=== PATIENT | male | born 1975 | race American Indian/Alaskan Native ===

== ENCOUNTER 2021-07-15 00:05 | Inpatient (IN) | payer SELFPAY ==
[2021-07-15] MEDS ORDERED: SODIUM CHLORIDE 0.9% 1000 ML 1,000 ML IV ONE ×2 (00:38→02:40)
--- NOTE | 2021-07-15 00:44 | Emergency Department Report ---
HPI - General Chief Complaint: Arrhythmia/Palpitations Time Seen by Provider: 07/15/21 00:36 - HPI HPI: 45-year-old male with history of hypertension, Crohn's disease, and atrial fibrillation on Eliquis and sotalol presents complaining of palpitations which woke him up from sleep approximately 30 minutes ago. He states he woke up with the sensation of his heart racing and with a jittery/fluttery feeling. The patient says he is visiting from [place] where he follows in the clinic for his A. fib. In the past he has had to be cardioverted because of his A. fib. Other than the palpitations he denies experiencing any other symptoms. Specifically d enies any headache, vision change, chest pain, shortness of breath, cough, abdominal pain, nausea/vomiting, focal weakness, sensory changes, or any other complaints. Upon further discussion, the patient admits to feeling slightly dehydrated and not drinking enough fluids recently. Otherwise there are no known aggravating or alleviating factors. He has not tried taking anything for his symptoms. He is fully vaccinated against COVID-19. ED Past Medical Hx - Past Medical History Previous Medical History?: Yes Hx Hypertension: Yes Hx Diabetes: Yes (Pre-diabetic) Additional medical history: Atrial fib, Crohn's - Surgical History Past Surgical History?: Yes Hx Appendectomy: Yes Additional Surgical History: Bowel resection - Social History Smoking Status: Never Smoker ED Review of Systems ROS: Stated complaint: chest pain,A-fib Other details as noted in HPI Comment: All other systems reviewed and negative Constitutional: denies: chills, fever Eyes: denies: eye pain, vision change ENT: denies: throat pain, congestion Respiratory: denies: cough, shortness of breath Cardiovascular: palpitations. denies: chest pain, syncope Gastrointestinal: denies: abdominal pain, nausea, vomiting Genitourinary: denies: dysuria, frequency Musculoskeletal: denies: back pain, arthralgia Skin: denies: rash, lesions Neurological: denies: headache, weakness, numbness Physical Exam - Physical Exam Vital Signs: Vital Signs 07/15/21 00:27 Temperature 98.1 F Pulse Rate 140 H Respiratory 18 Rate Blood Pressure 113/91 [Right] O2 Sat by Pulse 96 Oximetry Physical Exam: GENERAL: Well developed and well nourished. No acute distress HEAD: Normocephalic. No obvious signs of trauma. ENT: Dry mucous membranes. EYES: Extraocular movements are intact. Pupils are equal round and reactive to light bilaterally NECK: Supple. Full ROM is intact. Trachea is midline. LUNGS: Nonlabored breathing. Equal chest rise bilaterally. Clear to auscultation bilaterally. CARDIOVASCULAR: Tachycardic with irregularly irregular rhythm. No murmurs or rubs. VASCULAR: Cap refill < 2 seconds ABDOMEN: Abdomen is soft and nondistended. There is no significant tenderness, guarding or rebound. SKIN: Skin is warm and dry NEURO: Patient is awake, alert, and oriented. graffiti cleaner II-XII grossly intact. No focal deficits. Normal motor and sensory exam throughout. Normal speech. MUSCULOSKELETAL: No obvious deformities. No significant tenderness. Normal ROM throughout. BACK/SPINE: No costovertebral angle tenderness. ED Course Vital Signs 07/15/21 00:27 Temperature 98.1 F Pulse Rate 140 H Respiratory 18 Rate Blood Pressure 113/91 [Right] O2 Sat by Pulse 96 Oximetry ED Medical Decision Making - Lab Data Result diagrams: 07/15/21 00:51 07/15/21 00:51 Lab Results 07/15/21 07/15/21 07/15/21 Range/Units 00:51 00:51 00:51 WBC 9.0 (4.5-11.0) K/mm3 RBC 4.98 (3.65-5.03) M/mm3 Hgb 15.7 H (11.8-15.2) gm/dl Hct 47.3 H (35.5-45.6) % MCV 95 H (84-94) fl MCH 32 (28-32) pg MCHC 33 (32-34) % RDW 14.2 (13.2-15.2) % Plt Count 343 (140-440) K/mm3 Lymph % (Auto) 23.6 (13.4-35.0) % [place] % (Auto) 9.6 H (0.0-7.3) % Eos % (Auto) 2.2 (0.0-4.3) % Baso % (Auto) 0.7 (0.0-1.8) % Lymph # (Auto) 2.1 (1.2-5.4) K/mm3 [place] # (Auto) 0.9 H (0.0-0.8) K/mm3 Eos # (Auto) 0.2 (0.0-0.4) K/mm3 Baso # (Auto) 0.1 (0.0-0.1) K/mm3 Seg Neutrophils % 63.9 (40.0-70.0) % Seg Neutrophils # 5.8 (1.8-7.7) K/mm3 PT 13.8 (12.2-14.9) Sec. INR 0.96 (0.87-1.13) APTT 25.3 (24.2-36.6) Sec. Sodium 139 (137-145) mmol/L Potassium 3.6 (3.6-5.0) mmol/L Chloride 99.0 (98-107) mmol/L Carbon Dioxide 27 (22-30) mmol/L Anion Gap 17 mmol/L BUN 12 (9-20) mg/dL Creatinine 1.0 (0.8-1.3) mg/dL Estimated GFR > 60 ml/min BUN/Creatinine Ratio 12 % Glucose 166 H (75-100) mg/dL Calcium 9.2 (8.4-10.2) mg/dL Magnesium 2.10 (1.7-2.3) mg/dL Total Bilirubin 0.40 (0.1-1.2) mg/dL Direct Bilirubin < 0.2 (0-0.2) mg/dL Indirect Bilirubin 0.2 mg/dL AST 17 (5-40) units/L ALT 11 (7-56) units/L Alkaline Phosphatase 68 (35-129) units/L Troponin T < 0.010 (0.00-0.029) ng/mL NT-Pro-B Natriuret Pep 12.56 (0-450) pg/mL Total Protein 8.5 H (6.3-8.2) g/dL Albumin 4.5 (3.9-5) g/dL Albumin/Globulin Ratio 1.1 % TSH (0.270-4.200) mlU/mL 07/15/21 07/15/21 Range/Units 00:51 03:33 WBC (4.5-11.0) K/mm3 RBC (3.65-5.03) M/mm3 Hgb (11.8-15.2) gm/dl Hct (35.5-45.6) % MCV (84-94) fl MCH (28-32) pg MCHC (32-34) % RDW (13.2-15.2) % Plt Count (140-440) K/mm3 Lymph % (Auto) (13.4-35.0) % [place] % (Auto) (0.0-7.3) % Eos % (Auto) (0.0-4.3) % Baso % (Auto) (0.0-1.8) % Lymph # (Auto) (1.2-5.4) K/mm3 [place] # (Auto) (0.0-0.8) K/mm3 Eos # (Auto) (0.0-0.4) K/mm3 Baso # (Auto) (0.0-0.1) K/mm3 Seg Neutrophils % (40.0-70.0) % Seg Neutrophils # (1.8-7.7) K/mm3 PT (12.2-14.9) Sec. INR (0.87-1.13) APTT (24.2-36.6) Sec. Sodium (137-145) mmol/L Potassium (3.6-5.0) mmol/L Chloride (98-107) mmol/L Carbon Dioxide (22-30) mmol/L Anion Gap mmol/L BUN (9-20) mg/dL Creatinine (0.8-1.3) mg/dL Estimated GFR ml/min BUN/Creatinine Ratio % Glucose (75-100) mg/dL Calcium (8.4-10.2) mg/dL Magnesium (1.7-2.3) mg/dL Total Bilirubin (0.1-1.2) mg/dL Direct Bilirubin (0-0.2) mg/dL Indirect Bilirubin mg/dL AST (5-40) units/L ALT (7-56) units/L Alkaline Phosphatase (35-129) units/L Troponin T < 0.010 (0.00-0.029) ng/mL NT-Pro-B Natriuret Pep (0-450) pg/mL Total Protein (6.3-8.2) g/dL Albumin (3.9-5) g/dL Albumin/Globulin Ratio % TSH 3.030 (0.270-4.200) mlU/mL - EKG Data -: EKG Interpreted by Me - EKG Data 07/15/21 00:42 Atrial fibrillation with rapid ventricular response with rate of 145. Normal axis. Grossly normal intervals. Occasional PVCs. No obvious ST segment or T wave abnormalities. - Radiology Data Radiology results: report reviewed - Medical Decision Making 45-year-old male with history of A. fib on sotalol and Eliquis as well as Crohn's disease and hypertension presents complaining of palpitations which woke him up from sleep 30 minutes ago. He denies any associated chest pain, shortness of breath, or any other associate symptoms of deformity palpitations. On initial assessment he was noted to be with rapid heart rate of 140. EKG shows A. fib with RVR with rate of 145. However, when speaking to the patient his heart rate varies from the 100s to the 130s on the monitor. He is afebrile with otherwise stable vitals. He has dry mucous membranes admits to poor fluid intake recently. We will perform broad work-up with a full set of labs, EKG, chest x-ray. We will give 1 L of IV fluids and reassess. Chest x-ray shows no acute abnormalities Labs reveal no significant leukocytosis or anemia. However, hemoglobin is elevated at 15.7 which I suspect is the result of hemoconcentration from volume depletion. Creatinine is within normal limits at 1.0 with BUN of 12. Potassium is 3.6. Given the patient is presenting with A. fib I have ordered potassium repletion. Troponin is negative. BNP is normal. TSH is normal. At 2:50 AM, the patient was finally brought back to a room in the main ER where he can receive IV fluids. Nonetheless, his heart rate is in the 140s. The patient normally takes sotalol 120 mg twice daily. Given this history we will call cardiology for recommendations for rate control if IV fluids fail to bring the patient's heart rate down. At 3:20 AM I spoke with Dr. Reza of cardiology regarding the patient's case. He recommends initiation of a Cardizem drip for rate control and admission to the hospital with further recommendations to be given in the inpatient side in the morning. Cardizem drip has been initiated. The patient was explained the need for admission for rate control and transition to an oral medication. He expressed understanding and agreement with the plan of care. At 3:30 AM I spoke with Dr. Yanez, the on-call hospitalist regarding the case and he accepts the patient for admission and will assume care. On repeat assessment at 5:30 AM, the patient's heart rate is better controlled, in the 100s to 120s. He still needs to receive the rest of his IV fluids. Critical Care Time: Yes Critical care time in (mins) excluding proc time.: 40 Critical care attestation.: If time is entered above; I have spent that time in minutes in the direct care of this critically ill patient, excluding procedure time. Critical care time was spent in the evaluation/assessment, work-up, and management of atrial fibrillation with RVR requiring initiation of a Cardizem drip as well as consultation with cardiology and frequent reevaluation and reassessment. ED Disposition Clinical Impression: Atrial fibrillation with RVR, Dehydration Disposition: 09 ADMITTED INPATIENT Is pt being admited?: Yes Condition: Serious
--- NOTE | 2021-07-15 01:14 | XRay Report ---
CHEST 2 VIEWS INDICATION / CLINICAL INFORMATION: Palpitations.. COMPARISON: None available. FINDINGS: SUPPORT DEVICES: None. HEART / MEDIASTINUM: No significant abnormality. LUNGS / PLEURA: No significant pulmonary or pleural abnormality. Mild elevation of the left hemidiaph ragm. No pneumothorax. ADDITIONAL FINDINGS: No significant additional findings. IMPRESSION: 1. No acute findings. Signer Name: Emma Grant MD Signed: 07/15/2021 1:10 AM Workstation Name: [id number]
[2021-07-15 01:39] LABS: Basophils # (Auto) 0.1 K/mm3 (0.0-0.1); Basophils % (Auto) 0.7 % (0.0-1.8); Eosinophils # (Auto) 0.2 K/mm3 (0.0-0.4); Eosinophils % (Auto) 2.2 % (0.0-4.3); Hematocrit 47.3 % (35.5-45.6); Hemoglobin 15.7 gm/dl (11.8-15.2); Lymphocytes # (Auto) 2.1 K/mm3 (1.2-5.4); Lymphocytes % (Auto) 23.6 % (13.4-35.0); Mean Corpuscular HGB Conc 33 % (32-34); Mean Corpuscular Volume 95 fl (84-94); Monocytes # (Auto) 0.9 K/mm3 (0.0-0.8); Monocytes % (Auto) 9.6 % (0.0-7.3); Platelet Count 343 K/mm3 (140-440); Red Blood Count 4.98 M/mm3 (3.65-5.03); Red Cell Distribution Width 14.2 % (13.2-15.2)
[2021-07-15 01:42] LABS: Alanine Aminotransferase 11 units/L (7-56); Albumin 4.5 g/dL (3.9-5); BUN/Creatinine Ratio 12; Blood Urea Nitrogen 12 mg/dL (9-20); Calcium 9.2 mg/dL (8.4-10.2); Hemolysis Index 17
[2021-07-15 01:45] LABS: Bilirubin,Direct < 0.2 mg/dL (0-0.2)
[2021-07-15 01:55] LABS: INR 0.96 (0.87-1.13)
[2021-07-15 01:56] LABS: Partial Thromboplastin Time 25.3 Sec. (24.2-36.6)
[2021-07-15] MEDS ORDERED: POTASSIUM CHLORIDE ER 20 MEQ TAB PO ONE (02:28)
[2021-07-15] MEDS ORDERED: traMADol 50 MG TAB PO PRN (04:50)
[2021-07-15] MEDS ORDERED: MORPHINE 4 MG/1 ML INJ IV PRN (04:50)
[2021-07-15] MEDS ORDERED: ACETAMINOPHEN 325 MG TAB PO PRN (04:50)
--- NOTE | 2021-07-15 04:58 | History and Physical Report ---
History of Present Illness Date of examination: 07/15/21 Date of admission: 07/15/21 Chief complaint: Palpitation History of present illness: 45-year-old male with history of hypertension, Crohn's disease, and atrial fibrillation on Eliquis and sotalol was brought to the emergency room because of palpitations which woke him up from sleep approximately 30 minutes ago. He states he woke up with the sensation of his heart racing and with a jittery/fluttery feeling. The patient says he is visiting from [place] where he follows in the clinic for his A. fib. In the past he has had to be cardioverted because of his A. fib. Other than the palpitations he denies experiencing any other symptoms. Specifically denies any headache, vision change, chest pain, shortness of breath, cough, abdominal pain, nausea/vomiting, focal weakness, sensory changes, or any other complaints. Upon further discussion, the patient admits to feeling slightly dehydrated and not drinking enough fluids recently. Otherwise there are no known aggravating or alleviating factors. He has not tried taking anything for his symptoms. He is fully vaccinated against COVID- 19. spoke with Dr[address] Reza of cardiology regarding the patient's case. He recommends initiation of a Cardizem drip for rate control and admission to the hospital with further recommendations to be given in the inpatient . Past History Past Medical History: atrial fib, diabetes, hypertension, other (Crohn's) Past Surgical History: Other (Bowel resection) Medications and Allergies Allergies Allergy/AdvReac Type Severity Reaction Status Date / Time prednisone AdvReac Unknown Verified 07/15/21 00:27 Active Meds: Active Medications Diltiazem HCl (Cardizem/D5w 100mg/100ml) 100 mg in 100 mls @ 5 mls/hr IV TITR ELTON; Protocol Review of Systems All systems: negative Cardiovascular: palpitations, rapid/irregular heart beat, lightheadedness Exam - Constitutional Vitals: Temp Pulse Resp BP Pulse Ox 98.1 F 142 H 18 160/90 99 07/15/21 00:27 07/15/21 02:52 07/15/21 02:52 07/15/21 02:52 07/15/21 02:52 General appearance: Present: no acute distress, well-nourished - EENT Eyes: Present: PERRL ENT: hearing intact, clear oral mucosa - Neck Neck: Present: supple, normal ROM - Respiratory Respiratory effort: normal Respiratory: bilateral: diminished - Cardiovascular Rhythm: irregularly irregular Heart Sounds: Present: S1 & S2. Absent: rub, click - Extremities Extremities: pulses symmetrical, No edema Peripheral Pulses: within normal limits - Abdominal General gastrointestinal: Present: soft, non-tender, non-distended, normal bowel sounds Male genitourinary: Present: normal - Integumentary Integumentary: Present: clear, warm, dry - Musculoskeletal Musculoskeletal: gait normal, strength equal bilaterally - Psychiatric Psychiatric: appropriate mood/affect, intact judgment & insight - Neurologic Neurologic: CNII-XII intact, moves all extremities HEART Score - HEART Score Troponin: Troponin T < 0.010 ng/mL (0.00-0.029) 07/15/21 03:33 Results - Labs CBC & Chem 7: 07/15/21 00:51 07/15/21 00:51 Labs: Laboratory Last Values WBC 9.0 K/mm3 (4.5-11.0) 07/15/21 00:51 RBC 4.98 M/mm3 (3.65-5.03) 07/15/21 00:51 Hgb 15.7 gm/dl (11.8-15.2) H 07/15/21 00:51 Hct 47.3 % (35.5-45.6) H 07/15/21 00:51 MCV 95 fl (84-94) H 07/15/21 00:51 MCH 32 pg (28-32) 07/15/21 00:51 MCHC 33 % (32-34) 07/15/21 00:51 RDW 14.2 % (13.2-15.2) 07/15/21 00:51 Plt Count 343 K/mm3 (140-440) 07/15/21 00:51 Lymph % (Auto) 23.6 % (13.4-35.0) 07/15/21 00:51 [place] % (Auto) 9.6 % (0.0-7.3) H 07/15/21 00:51 Eos % (Auto) 2.2 % (0.0-4.3) 07/15/21 00:51 Baso % (Auto) 0.7 % (0.0-1.8) 07/15/21 00:51 Lymph # (Auto) 2.1 K/mm3 (1.2-5.4) 07/15/21 00:51 [place] # (Auto) 0.9 K/mm3 (0.0-0.8) H 07/15/21 00:51 Eos # (Auto) 0.2 K/mm3 (0.0-0.4) 07/15/21 00:51 Baso # (Auto) 0.1 K/mm3 (0.0-0.1) 07/15/21 00:51 Seg Neutrophils % 63.9 % (40.0-70.0) 07/15/21 00:51 Seg Neutrophils # 5.8 K/mm3 (1.8-7.7) 07/15/21 00:51 PT 13.8 Sec. (12.2-14.9) 07/15/21 00:51 INR 0.96 (0.87-1.13) 07/15/21 00:51 APTT 25.3 Sec. (24.2-36.6) 07/15/21 00:51 Sodium 139 mmol/L (137-145) 07/15/21 00:51 Potassium 3.6 mmol/L (3.6-5.0) 07/15/21 00:51 Chloride 99.0 mmol/L (98-107) 07/15/21 00:51 Carbon Dioxide 27 mmol/L (22-30) 07/15/21 00:51 Anion Gap 17 mmol/L 07/15/21 00:51 BUN 12 mg/dL (9-20) 07/15/21 00:51 Creatinine 1.0 mg/dL (0.8-1.3) 07/15/21 00:51 Estimated GFR > 60 ml/min 07/15/21 00:51 BUN/Creatinine Ratio 12 % 07/15/21 00:51 Glucose 166 mg/dL (75-100) H 07/15/21 00:51 Calcium 9.2 mg/dL (8.4-10.2) 07/15/21 00:51 Magnesium 2.10 mg/dL (1.7-2.3) 07/15/21 00:51 Total Bilirubin 0.40 mg/dL (0.1-1.2) 07/15/21 00:51 Direct Bilirubin < 0.2 mg/dL (0-0.2) 07/15/21 00:51 Indirect Bilirubin 0.2 mg/dL 07/15/21 00:51 AST 17 units/L (5-40) 07/15/21 00:51 ALT 11 units/L (7-56) 07/15/21 00:51 Alkaline Phosphatase 68 units/L (35-129) 07/15/21 00:51 Troponin T < 0.010 ng/mL (0.00-0.029) 07/15/21 03:33 NT-Pro-B Natriuret Pep 12.56 pg/mL (0-450) 07/15/21 00:51 Total Protein 8.5 g/dL (6.3-8.2) H 07/15/21 00:51 Albumin 4.5 g/dL (3.9-5) 07/15/21 00:51 Albumin/Globulin Ratio 1.1 % 07/15/21 00:51 TSH 3.030 mlU/mL (0.270-4.200) 07/15/21 00:51 - Imaging and Cardiology Chest x-ray: report reviewed Assessment and Plan VTE prophylaxis?: Chemical Plan of care discussed with patient/family: Yes - Patient Problems (1) Atrial fibrillation with RVR Current Visit: Yes Status: Acute Plan to address problem: Admit the patient to the critical care unit. Aspirin 81 mg p.o. daily. Lipitor 40 mg p.o. daily. Patient is on Cardizem drip. We will do the serial cardiac enzymes. Echocardiogram. Cardiac allergy evaluation. Eliquis 5 mg p.o. twice daily (2) Hypertension Current Visit: Yes Status: Acute Plan to address problem: Patient is on Cardizem drip. We will continue the home medication. We will monitor the patient closely (3) Hyperglycemia Current Visit: Yes Status: Acute Plan to address problem: Will monitor the glucose closely. Will consult diabetic education. (4) Dehydration Current Visit: Yes Status: Acute Plan to address problem: Normal saline at the rate of 100 cc/h. We dehydrate the patient slowly. Recheck BMP in the morning (5) DVT prophylaxis Current Visit: Yes Status: Acute Plan to address problem: Eliquis 5 mg p.o. twice daily for DVT prophylaxis. Pepcid 20 mg p.o. twice daily for GI prophylaxis. Patient is a full code
[2021-07-15] MEDS ORDERED: SODIUM CHLORIDE 0.9% 1000 ML 1,000 ML IV SCH (05:00)
[2021-07-15] MEDS: dilTIAZem/D5W 100 MG/100 ML BAG IV SCH ×2 (06:00→17:05)
--- NOTE | 2021-07-15 08:05 | Progress Note ---
Assessment and Plan Assessment and plan: History of present illness: 45-year-old male with history of hypertension, Crohn's disease, and atrial fibrillation on Eliquis and sotalol was brought to the emergency room because of palpitations which woke him up from sleep approximately 30 minutes ago. He states he woke up with the sensation of his heart racing and with a jittery/fluttery feeling. The patient says he is visiting from [place] where he follows in the clinic for his A. fib. In the past he has had to be cardioverted because of his A. fib. Other than the palpitations he denies experiencing any other symptoms. Specifically denies any headache, vision change, chest pain, shortness of breath, cough, abdominal pain, nausea/vomiting, focal weakness, sensory changes, or any other complaints. Upon further discussion, the patient admits to feeling slightly dehydrated and not drinking enough fluids recently. Otherwise there are no known aggravating or alleviating factors. He has not tried taking anything for his symptoms. He is fully vaccinated against COVID- 19. Admitting physician spoke with Dr. Reza of cardiology regarding the patient's case. He recommends initiation of a Cardizem drip for rate control and admission to the hospital with further recommendations to be given in the inpatient . Hospital Course: 07/15/2021: On diltiazem gtt. Restarted home sotalol, eliquis, hctz, amlodipine. Cardiology recs noted. Awaiting echo read. Assessment: #Atrial fibrillation with rapid ventricular response - palpitations noted while sleeping, follows with [facility] [employer] in [place]. Has a prior history of cardioversion x 1. Continuous telemetry Aspirin 81, Lipitor 40 Cardizem drip Trend troponins Echocardiogram Resume home Eliquis and sotalol Cardiology consultation, may consider cardioversion if unable to control. #Hypertension - elevated overnight - prn labetalol IV - currently on cardizem gtt - restarted amlodipine and hctz. #Hyperglycemia - noted #Dehydration - IVF - encourage PO intake. #Advance care planning Disease education conducted, care plan discussed, diagnoses discussed, prognosis discussed, patient is full code, patient acknowledges understanding and agree with care plan, +30 minutes. The high probability of a clinically significant, sudden or life threatening deterioration of the [cardiac] system(s) required my full and direct attention, intervention and personal management. The aggregate critical care time was [60] minutes. This time is in addition to time spent performing reported procedures but includes the following: [x] Data Review and interpretation [x] Patient assessment and monitoring of vital signs [x] Documentation [x] Medication orders and management History Interval history: Patient doing well on encounter. States he is compliant with cardiac meds. He was sleeping when palpitations occured which prompted him to seek urgent medical care. Ventricular rate was upper 90's/low 100's. Rhythm remains in afib. BP stable. Hospitalist Physical - Physical exam Narrative exam: Physical Exam: VITAL SIGNS: Reviewed. GENERAL: The patient appears normally developed, Vital signs as documented. HEAD: No signs of head trauma. EYES: Pupils are equal. Extraocular motions intact. EARS: Hearing grossly intact. MOUTH: Oropharynx is normal. NECK: No adenopathy, no JVD. CHEST: Chest with clear breath sounds bilaterally. No wheezes, rales, or rhonchi. CARDIAC: tachycardic/ irregular rhythm. S1 and S2, without murmurs, gallops, or rubs. VASCULAR: No Edema. Peripheral pulses normal and equal in all extremities. ABDOMEN: Soft, non tender and non distended. No rebound or guarding, and no masses palpated. Bowel Sounds normal. MUSCULOSKELETAL: Good range of motion of all major joints. Extremities without clubbing, cyanosis or edema. NEUROLOGIC EXAM: Alert and oriented x 4. no focal sensory or strength deficits. PSYCHIATRIC: Mood normal. SKIN: detail exam as documented in skin assessment - Constitutional Vitals: Temp Pulse Resp BP Pulse Ox 98.1 F 142 H 18 160/90 99 07/15/21 00:27 07/15/21 02:52 07/15/21 02:52 07/15/21 02:52 07/15/21 02:52 General appearance: Present: no acute distress, well-nourished HEART Score - HEART Score Troponin: Troponin T < 0.010 ng/mL (0.00-0.029) 07/15/21 03:33 Results - Labs CBC & Chem 7: 07/15/21 00:51 07/15/21 00:51 Labs: Laboratory Last Values WBC 9.0 K/mm3 (4.5-11.0) 07/15/21 00:51 RBC 4.98 M/mm3 (3.65-5.03) 07/15/21 00:51 Hgb 15.7 gm/dl (11.8-15.2) H 07/15/21 00:51 Hct 47.3 % (35.5-45.6) H 07/15/21 00:51 MCV 95 fl (84-94) H 07/15/21 00:51 MCH 32 pg (28-32) 07/15/21 00:51 MCHC 33 % (32-34) 07/15/21 00:51 RDW 14.2 % (13.2-15.2) 07/15/21 00:51 Plt Count 343 K/mm3 (140-440) 07/15/21 00:51 Lymph % (Auto) 23.6 % (13.4-35.0) 07/15/21 00:51 [place] % (Auto) 9.6 % (0.0-7.3) H 07/15/21 00:51 Eos % (Auto) 2.2 % (0.0-4.3) 07/15/21 00:51 Baso % (Auto) 0.7 % (0.0-1.8) 07/15/21 00:51 Lymph # (Auto) 2.1 K/mm3 (1.2-5.4) 07/15/21 00:51 [place] # (Auto) 0.9 K/mm3 (0.0-0.8) H 07/15/21 00:51 Eos # (Auto) 0.2 K/mm3 (0.0-0.4) 07/15/21 00:51 Baso # (Auto) 0.1 K/mm3 (0.0-0.1) 07/15/21 00:51 Seg Neutrophils % 63.9 % (40.0-70.0) 07/15/21 00:51 Seg Neutrophils # 5.8 K/mm3 (1.8-7.7) 07/15/21 00:51 PT 13.8 Sec. (12.2-14.9) 07/15/21 00:51 INR 0.96 (0.87-1.13) 07/15/21 00:51 APTT 25.3 Sec. (24.2-36.6) 07/15/21 00:51 Sodium 139 mmol/L (137-145) 07/15/21 00:51 Potassium 3.6 mmol/L (3.6-5.0) 07/15/21 00:51 Chloride 99.0 mmol/L (98-107) 07/15/21 00:51 Carbon Dioxide 27 mmol/L (22-30) 07/15/21 00:51 Anion Gap 17 mmol/L 07/15/21 00:51 BUN 12 mg/dL (9-20) 07/15/21 00:51 Creatinine 1.0 mg/dL (0.8-1.3) 07/15/21 00:51 Estimated GFR > 60 ml/min 07/15/21 00:51 BUN/Creatinine Ratio 12 % 07/15/21 00:51 Glucose 166 mg/dL (75-100) H 07/15/21 00:51 Calcium 9.2 mg/dL (8.4-10.2) 07/15/21 00:51 Magnesium 2.10 mg/dL (1.7-2.3) 07/15/21 00:51 Total Bilirubin 0.40 mg/dL (0.1-1.2) 07/15/21 00:51 Direct Bilirubin < 0.2 mg/dL (0-0.2) 07/15/21 00:51 Indirect Bilirubin 0.2 mg/dL 07/15/21 00:51 AST 17 units/L (5-40) 07/15/21 00:51 ALT 11 units/L (7-56) 07/15/21 00:51 Alkaline Phosphatase 68 units/L (35-129) 07/15/21 00:51 Troponin T < 0.010 ng/mL (0.00-0.029) 07/15/21 03:33 NT-Pro-B Natriuret Pep 12.56 pg/mL (0-450) 07/15/21 00:51 Total Protein 8.5 g/dL (6.3-8.2) H 07/15/21 00:51 Albumin 4.5 g/dL (3.9-5) 07/15/21 00:51 Albumin/Globulin Ratio 1.1 % 07/15/21 00:51 TSH 3.030 mlU/mL (0.270-4.200) 07/15/21 00:51 Active Medications - Current Medications Current Medications: Generic Name Dose Route Start Last Admin Trade Name Freq PRN Reason Stop Dose Admin Acetaminophen 650 mg 07/15/21 04:50 Acetaminophen 325 Mg Tab PO Q6H PRN Pain, Mild (1-3) Apixaban 5 mg 07/15/21 10:00 Apixaban 5 Mg Tab PO Q12HR [facility] Protocol Aspirin 81 mg 07/16/21 10:00 Aspirin 81 Mg Tab Chew PO QDAY [facility] Atorvastatin Calcium 40 mg 07/15/21 22:00 Atorvastatin 40 Mg Tab PO QHS [place] Diltiazem HCl 100 mg in 100 mls @ 5 mls/hr 07/15/21 04:00 07/15/21 06:00 Cardizem/D5w 100mg/100ml IV 5 mg/hr TITR [place] 5 mls/hr Administration Protocol 5 MG/HR Sodium Chloride 1,000 mls @ 100 mls/hr 07/15/21 05:00 Nacl 0.9% 1000 Ml IV DIRECT [place] Morphine Sulfate 2 mg 07/15/21 04:50 Morphine 4 Mg/1 Ml Inj IV Q5MIN PRN Chest Pain unrelieved by NTG Pantoprazole Sodium 40 mg 07/15/21 10:00 Pantoprazole 40 Mg Tab PO QDAY [facility] Sodium Chloride 10 ml 07/15/21 04:50 Sodium Chloride 0.9% 10 Ml Flush Syringe IV PRN PRN LINE FLUSH Tramadol HCl 50 mg 07/15/21 04:50 Tramadol 50 Mg Tab PO Q6H PRN Pain, Moderate (4-6)
[2021-07-15] MEDS: PANTOPRAZOLE 40 MG TAB PO SCH (11:25)
[2021-07-15] MEDS: APIXABAN 5 MG TAB PO SCH ×2 (11:25→21:43)
--- NOTE | 2021-07-15 11:33 | Consultation ---
History of Present Illness Consult date: 07/15/21 Requesting physician: SHAMA GONGORA Consult reason: tachycardia History of present illness: Have been consulted and evaluated the patient who presented with palpitation and was noted to be in A. fib with RVR. Patient is a 45-year-old male with history of hypertension, Crohn's disease, and paroxysmal atrial fibrillation on Eliquis and sotalol. Patient apparently lives in [place] and visiting relatives here in [place]. He reports he has longstanding history of paroxysmal atrial fibrillation with 5-6 recurrences. Previously been cardioverted also. 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 Maintained on sotalol and Eliquis by his PCP. He reports he has been compliant with his Eliquis therapy. Patient reports he had palpitations which woke him up from sleep approximately 30 minutes prior to arrival to the hospital. He states he woke up with the sensation of his heart racing and with a jittery/fluttery feeling. Patient denies any headache, vision change, chest pain, shortness of breath, cough, abdominal pain, nausea/vomiting, focal weakness, sensory changes, or any other complaints. . Past History Past Medical History: atrial fib, diabetes, hypertension, other (Crohn's) Past Surgical History: Other (Bowel resection) Medications and Allergies Allergies Allergy/AdvReac Type Severity Reaction Status Date / Time prednisone AdvReac Unknown Verified 07/15/21 00:27 Active Meds: Active Medications Acetaminophen (Acetaminophen 325 Mg Tab) 650 mg PO Q6H PRN PRN Reason: Pain, Mild (1-3) Apixaban (Apixaban 5 Mg Tab) 5 mg PO Q12HR ELTON; Protocol Last Admin: 07/15/21 11:25 Dose: 5 mg Aspirin (Aspirin 81 Mg Tab Chew) 81 mg PO QDAY ELTON Atorvastatin Calcium (Atorvastatin 40 Mg Tab) 40 mg PO QHS ELTON Diltiazem HCl (Cardizem/D5w 100mg/100ml) 100 mg in 100 mls @ 5 mls/hr IV TITR ELTON; Protocol Last Titration: 07/15/21 08:02 Dose: 10 mg/hr, 10 mls/hr Sodium Chloride (Nacl 0.9% 1000 Ml) 1,000 mls @ 100 mls/hr IV DIRECT ELTON Morphine Sulfate (Morphine 4 Mg/1 Ml Inj) 2 mg IV Q5MIN PRN PRN Reason: Chest Pain unrelieved by NTG Pantoprazole Sodium (Pantoprazole 40 Mg Tab) 40 mg PO QDAY ELTON Last Admin: 07/15/21 11:25 Dose: 40 mg Sodium Chloride (Sodium Chloride 0.9% 10 Ml Flush Syringe) 10 ml IV PRN PRN PRN Reason: LINE FLUSH Sotalol HCl (Sotalol 80 Mg Tab) 120 mg PO Q12HR ELTON Tramadol HCl (Tramadol 50 Mg Tab) 50 mg PO Q6H PRN PRN Reason: Pain, Moderate (4-6) Review of Systems All systems: negative (As mentioned in the H&P) Physical Examination Vital Signs Temp Pulse Resp BP Pulse Ox 98.1 F 140 H 18 113/91 96 07/15/21 00:27 07/15/21 00:27 07/15/21 00:27 07/15/21 00:27 07/15/21 00:27 General appearance: no acute distress HEENT: Positive: Normocephaly Neck: Positive: trachea midline Cardiac: Positive: Irregularly Regular Lungs: Positive: clear to auscultation Neuro: Positive: Grossly Intact Abdomen: Positive: Unremarkable Extremities: Present: normal Results 07/15/21 00:51 07/15/21 00:51 Cardiac Enzymes 07/15/21 Range/Units 00:51 AST 17 (5-40) units/L Coagulation 07/15/21 Range/Units 00:51 PT 13.8 (12.2-14.9) Sec. INR 0.96 (0.87-1.13) APTT 25.3 (24.2-36.6) Sec. CBC 07/15/21 Range/Units 00:51 WBC 9.0 (4.5-11.0) K/mm3 RBC 4.98 (3.65-5.03) M/mm3 Hgb 15.7 H (11.8-15.2) gm/dl Hct 47.3 H (35.5-45.6) % Plt Count 343 (140-440) K/mm3 Lymph # (Auto) 2.1 (1.2-5.4) K/mm3 [place] # (Auto) 0.9 H (0.0-0.8) K/mm3 Eos # (Auto) 0.2 (0.0-0.4) K/mm3 Baso # (Auto) 0.1 (0.0-0.1) K/mm3 Comprehensive Metabolic Panel 07/15/21 Range/Units 00:51 Sodium 139 (137-145) mmol/L Potassium 3.6 (3.6-5.0) mmol/L Chloride 99.0 (98-107) mmol/L Carbon Dioxide 27 (22-30) mmol/L BUN 12 (9-20) mg/dL Creatinine 1.0 (0.8-1.3) mg/dL Glucose 166 H (75-100) mg/dL Calcium 9.2 (8.4-10.2) mg/dL Direct Bilirubin < 0.2 (0-0.2) mg/dL Indirect Bilirubin 0.2 mg/dL AST 17 (5-40) units/L ALT 11 (7-56) units/L Alkaline Phosphatase 68 (35-129) units/L Total Protein 8.5 H (6.3-8.2) g/dL Albumin 4.5 (3.9-5) g/dL EKG interpretations - Telemetry EKG Rhythm: Atrial Fibrillation Assessment and Plan Impression 1. Atrial fibrillation with RVR 2. History of paroxysmal atrial fibrillation on sotalol and anticoagulated with Eliquis 3. History of Crohn's disease status post surgery. Plan 1. Discontinue aspirin 2. Wean Cardizem drip 3. Continue sotalol 4. Continue Eliquis 5. CHADS2 Vascor of 1 (low low risk of thromboembolism) Patient had missed just 1 dose last night of Eliquis. Currently back on Eliquis. If patient has A. fib with RVR episodes will consider cardioversion.
[2021-07-15] MEDS: hydroCHLOROthiazide 12.5 MG CAP PO SCH (13:04)
--- NOTE | 2021-07-15 13:06 | Consultation ---
History of Present Illness - Reason for Consult Consult date: 07/15/21 Afib with RVR - History of Present Illness 45 y/o male with known Afib admitted last night with afib with rvr. Per patient on sotalol and has had to be cardioverted in the past. Patient from [place] here visiting family. Past History Past Medical History: atrial fib, diabetes, hypertension, other (Crohn's) Past Surgical History: Other (Bowel resection) Medications and Allergies Allergies Allergy/AdvReac Type Severity Reaction Status Date / Time prednisone AdvReac Unknown Verified 07/15/21 00:27 Active Meds: Active Medications Acetaminophen (Acetaminophen 325 Mg Tab) 650 mg PO Q6H PRN PRN Reason: Pain, Mild (1-3) Apixaban (Apixaban 5 Mg Tab) 5 mg PO Q12HR ELTON; Protocol Last Admin: 07/15/21 11:25 Dose: 5 mg Aspirin (Aspirin 81 Mg Tab Chew) 81 mg PO QDAY ELTON Atorvastatin Calcium (Atorvastatin 40 Mg Tab) 40 mg PO QHS ELTON Hydrochlorothiazide (Hydrochlorothiazide 12.5 Mg Cap) 12.5 mg PO QDAY ELTON Diltiazem HCl (Cardizem/D5w 100mg/100ml) 100 mg in 100 mls @ 5 mls/hr IV TITR ELTON; Protocol Last Titration: 07/15/21 08:02 Dose: 10 mg/hr, 10 mls/hr Sodium Chloride (Nacl 0.9% 1000 Ml) 1,000 mls @ 100 mls/hr IV DIRECT ELTON Morphine Sulfate (Morphine 4 Mg/1 Ml Inj) 2 mg IV Q5MIN PRN PRN Reason: Chest Pain unrelieved by NTG Pantoprazole Sodium (Pantoprazole 40 Mg Tab) 40 mg PO QDAY ELTON Last Admin: 07/15/21 11:25 Dose: 40 mg Sodium Chloride (Sodium Chloride 0.9% 10 Ml Flush Syringe) 10 ml IV PRN PRN PRN Reason: LINE FLUSH Sotalol HCl (Sotalol 80 Mg Tab) 120 mg PO Q12HR ELTON Tramadol HCl (Tramadol 50 Mg Tab) 50 mg PO Q6H PRN PRN Reason: Pain, Moderate (4-6) Exam - Constitutional Vitals: Temp Pulse Resp BP Pulse Ox 98.1 F 93 H 16 111/82 98 07/15/21 00:27 07/15/21 11:30 07/15/21 12:39 07/15/21 11:30 07/15/21 12:39 Results - Labs CBC & Chem 7: 07/15/21 00:51 07/15/21 00:51 Labs: Abnormal lab results 07/15/21 07/15/21 Range/Units 00:51 00:51 Hgb 15.7 H (11.8-15.2) gm/dl Hct 47.3 H (35.5-45.6) % MCV 95 H (84-94) fl [place] % (Auto) 9.6 H (0.0-7.3) % [place] # (Auto) 0.9 H (0.0-0.8) K/mm3 Glucose 166 H (75-100) mg/dL Total Protein 8.5 H (6.3-8.2) g/dL - Imaging and Cardiology Chest x-ray: image reviewed Assessment and Plan 45 y/o male with history of afib, on sotalol admitted with afib, rate not controlled. 1. Afib-rate control per cards. On anticoagulation with Eliquis. Per cards if not controlled then will consider cardioversion 2. HTN- per cards 3. Crohn's-not in flare
--- NOTE | 2021-07-16 08:44 | Progress Note ---
Assessment and Plan Assessment and plan: Assessment/plan --Atrial fibrillation with rapid ventricular response s/p Cardizem drip Patient remains in A. fib with rapid ventricular rate Cardiology recommended to continue Cardizem drip and also continue sotalol and Eliquis Echocardiogram; EF 60 to 65% Cardiology considering cardioversion tomorrow , n.p.o. from midnight --History of paroxysmal atrial fibrillation on Cardizem drip, sotalol and Eliquis Continue current management, possible cardioversion tomorrow if no improvement -- History of Crohn's disease; Stable, closely monitor --Dehydration[ Plenty oral fluids, IV fluids --Advance care planning Disease education conducted, care plan discussed, diagnoses discussed, prognosis discussed, patient acknowledges understanding and agree with care plan, +30 minutes. --Patient is full code, Closely monitor the patient and adjust management as needed --DVT prophylaxis cardiology recommendations noted and appreciated Brief history and daily Hospital Course: 45-year-old male with history of hypertension, Crohn's disease, and atrial fibrillation on Eliquis and sotalol was brought to the emergency room because of palpitations which woke him up from sleep approximately 30 minutes ago. He states he woke up with the sensation of his heart racing and with a jittery/fluttery feeling. The patient says he is visiting from [place] where he follows in the clinic for his A. fib. In the past he has had to be cardioverted because of his A. fib. Other than the palpitations he denies experiencing any other symptoms.The patient admits to feeling slightly dehydrated and not drinking enough fluids recently. Otherwise there are no kn own aggravating or alleviating factors. He has not tried taking anything for his symptoms. He is fully vaccinated against COVID-19. 07/15/2021: On diltiazem gtt. Restarted home sotalol, eliquis, hctz, amlodipine. Cardiology recs noted. Awaiting echo 60 to 65% 07/16/2021; patient remains in A. fib with rapid ventricular rate, cardiology recommend continue Cardizem drip, sotalol and Eliquis Possible cardioversion tomorrow per cardiology/ EP. N.p.o. from midnight History Interval history: I have seen and examined the patient at the bedside in ER awaiting bed assignment Patient continues to have A. fib with rapid ventricular rate in spite of receiv ing Cardizem drip and sotalol Patient denies any chest pain or shortness of breath Vital signs reviewed Hospitalist Physical - Constitutional Vitals: Temp Pulse Resp BP Pulse Ox 98.1 F 103 H 18 111/85 96 07/15/21 00:27 07/16/21 07:01 07/16/21 07:01 07/16/21 07:01 07/16/21 07:01 General appearance: Present: no acute distress, well-nourished - EENT Eyes: Present: PERRL, EOM intact - Neck Neck: Present: supple, normal ROM - Respiratory Respiratory effort: normal Respiratory: bilateral: diminished, negative: rales, rhonchi, wheezing - Cardiovascular Rhythm: irregularly irregular (Rapid ventricular rate) - Extremities Extremities: no ischemia, No edema - Abdominal General gastrointestinal: soft, non-tender, non-distended, normal bowel sounds - Integumentary Integumentary: Present: clear, warm - Psychiatric Psychiatric: appropriate mood/affect, cooperative - Neurologic Neurologic: moves all extremities HEART Score - HEART Score Troponin: Troponin T < 0.010 ng/mL (0.00-0.029) 07/15/21 10:44 Results - Labs CBC & Chem 7: 07/15/21 00:51 07/15/21 00:51 Labs: Laboratory Last Values WBC 9.0 K/mm3 (4.5-11.0) 07/15/21 00:51 RBC 4.98 M/mm3 (3.65-5.03) 07/15/21 00:51 Hgb 15.7 gm/dl (11.8-15.2) H 07/15/21 00:51 Hct 47.3 % (35.5-45.6) H 07/15/21 00:51 MCV 95 fl (84-94) H 07/15/21 00:51 MCH 32 pg (28-32) 07/15/21 00:51 MCHC 33 % (32-34) 07/15/21 00:51 RDW 14.2 % (13.2-15.2) 07/15/21 00:51 Plt Count 343 K/mm3 (140-440) 07/15/21 00:51 Lymph % (Auto) 23.6 % (13.4-35.0) 07/15/21 00:51 [place] % (Auto) 9.6 % (0.0-7.3) H 07/15/21 00:51 Eos % (Auto) 2.2 % (0.0-4.3) 07/15/21 00:51 Baso % (Auto) 0.7 % (0.0-1.8) 07/15/21 00:51 Lymph # (Auto) 2.1 K/mm3 (1.2-5.4) 07/15/21 00:51 [place] # (Auto) 0.9 K/mm3 (0.0-0.8) H 07/15/21 00:51 Eos # (Auto) 0.2 K/mm3 (0.0-0.4) 07/15/21 00:51 Baso # (Auto) 0.1 K/mm3 (0.0-0.1) 07/15/21 00:51 Seg Neutrophils % 63.9 % (40.0-70.0) 07/15/21 00:51 Seg Neutrophils # 5.8 K/mm3 (1.8-7.7) 07/15/21 00:51 PT 13.8 Sec. (12.2-14.9) 07/15/21 00:51 INR 0.96 (0.87-1.13) 07/15/21 00:51 APTT 25.3 Sec. (24.2-36.6) 07/15/21 00:51 Sodium 139 mmol/L (137-145) 07/15/21 00:51 Potassium 3.6 mmol/L (3.6-5.0) 07/15/21 00:51 Chloride 99.0 mmol/L (98-107) 07/15/21 00:51 Carbon Dioxide 27 mmol/L (22-30) 07/15/21 00:51 Anion Gap 17 mmol/L 07/15/21 00:51 BUN 12 mg/dL (9-20) 07/15/21 00:51 Creatinine 1.0 mg/dL (0.8-1.3) 07/15/21 00:51 Estimated GFR > 60 ml/min 07/15/21 00:51 BUN/Creatinine Ratio 12 % 07/15/21 00:51 Glucose 166 mg/dL (75-100) H 07/15/21 00:51 Calcium 9.2 mg/dL (8.4-10.2) 07/15/21 00:51 Magnesium 2.10 mg/dL (1.7-2.3) 07/15/21 00:51 Total Bilirubin 0.40 mg/dL (0.1-1.2) 07/15/21 00:51 Direct Bilirubin < 0.2 mg/dL (0-0.2) 07/15/21 00:51 Indirect Bilirubin 0.2 mg/dL 07/15/21 00:51 AST 17 units/L (5-40) 07/15/21 00:51 ALT 11 units/L (7-56) 07/15/21 00:51 Alkaline Phosphatase 68 units/L (35-129) 07/15/21 00:51 Troponin T < 0.010 ng/mL (0.00-0.029) 07/15/21 10:44 NT-Pro-B Natriuret Pep 12.56 pg/mL (0-450) 07/15/21 00:51 Total Protein 8.5 g/dL (6.3-8.2) H 07/15/21 00:51 Albumin 4.5 g/dL (3.9-5) 07/15/21 00:51 Albumin/Globulin Ratio 1.1 % 07/15/21 00:51 TSH 3.030 mlU/mL (0.270-4.200) 07/15/21 00:51 Active Medications - Current Medications Current Medications: Generic Name Dose Route Start Last Admin Trade Name Freq PRN Reason Stop Dose Admin Acetaminophen 650 mg 07/15/21 04:50 Acetaminophen 325 Mg Tab PO Q6H PRN Pain, Mild (1-3) Apixaban 5 mg 07/15/21 10:00 07/15/21 21:43 Apixaban 5 Mg Tab PO 5 mg Q12HR ELTON Administration Protocol Aspirin 81 mg 07/16/21 10:00 Aspirin 81 Mg Tab Chew PO QDAY ELTON Atorvastatin Calcium 40 mg 07/15/21 22:00 07/15/21 21:43 Atorvastatin 40 Mg Tab PO 40 mg QHS ELTON Administration Hydrochlorothiazide 12.5 mg 07/15/21 13:00 07/15/21 13:04 Hydrochlorothiazide 12.5 Mg Cap PO Not Given QDAY [facility] Diltiazem HCl 100 mg in 100 mls @ 5 mls/hr 07/15/21 04:00 07/15/21 23:14 Cardizem/D5w 100mg/100ml IV 0 mg/hr TITR ELTON 0 mls/hr Titration Protocol 5 MG/HR Sodium Chloride 1,000 mls @ 100 mls/hr 07/15/21 05:00 07/15/21 07:30 Nacl 0.9% 1000 Ml IV 100 mls/hr DIRECT ELTON Administration Morphine Sulfate 2 mg 07/15/21 04:50 Morphine 4 Mg/1 Ml Inj IV Q5MIN PRN Chest Pain unrelieved by NTG Pantoprazole Sodium 40 mg 07/15/21 10:00 07/15/21 11:25 Pantoprazole 40 Mg Tab PO 40 mg QDAY ELTON Administration Sodium Chloride 10 ml 07/15/21 04:50 Sodium Chloride 0.9% 10 Ml Flush Syringe IV PRN PRN LINE FLUSH Sotalol HCl 120 mg 07/15/21 22:00 07/15/21 21:42 Sotalol 80 Mg Tab PO 120 mg Q12HR ELTON Administration Tramadol HCl 50 mg 07/15/21 04:50 Tramadol 50 Mg Tab PO Q6H PRN Pain, Moderate (4-6)
--- NOTE | 2021-07-16 09:37 | Progress Note ---
Assessment and Plan Impression 1. Atrial fibrillation with RVR, patient continues to have elevated heart rates despite Cardizem drip and sotalol. 2. History of paroxysmal atrial fibrillation on sotalol and anticoagulated with Eliquis 3. History of Crohn's disease status post surgery. Telemetry : A. fib with RVR Echocardiogram : 07/15/2021 normal LV systolic function Plan 1. Continue Cardizem drip. 2. Continue sotalol and Eliquis 3. Continue sotalol 4. Continue Eliquis 5. CHADS2 Vascor of 0 (low low risk of thromboembolism) Patient had missed just 1 dose last night of Eliquis. (Confirmed with EP that 1 missed dose would not put him in a high risk of left atrial appendage thrombus) currently back on Eliquis. DC cardioversion tomorrow. Please keep patient n.p.o. Subjective Date of service: 07/16/21 Principal diagnosis: Paroxysmal atrial fibrillation Interval history: Patient continues to have A. fib with RVR episodes. Heart rates in the 120-130 on a Cardizem drip and sotalol. Tolerating heart rates well. Patient appears asymptomatic. Objective Vital Signs Pulse Resp BP Pulse Ox 07/16/21 07:01 103 H 18 111/85 96 07/16/21 04:01 96 H 21 98 07/16/21 03:31 88 17 96 07/16/21 03:01 88 17 96 07/16/21 02:31 87 18 95 07/16/21 02:01 91 H 18 95 07/16/21 01:31 87 17 93 07/16/21 01:01 83 18 96 07/16/21 00:30 85 17 110/78 95 07/16/21 00:01 100 H 14 98 07/15/21 23:31 76 18 96 07/15/21 23:01 77 16 94 07/15/21 22:31 76 11 L 96 07/15/21 22:01 94 H 15 96 07/15/21 21:42 104 H 07/15/21 21:31 100 H 38 H 96 07/15/21 21:01 100 H 31 H 97 07/15/21 20:53 100 H 17 121/81 97 07/15/21 20:31 109 H 21 121/81 96 07/15/21 20:12 99 07/15/21 20:01 96 H 12 116/83 97 07/15/21 19:31 109 H 17 125/75 97 07/15/21 19:01 28 H 121/82 95 07/15/21 18:31 97 H 15 116/72 96 07/15/21 18:01 93 H 11 L 93/72 97 07/15/21 17:31 110 H 21 99/76 93 07/15/21 17:01 95 H 11 L 103/68 97 07/15/21 16:31 86 19 98/62 96 07/15/21 16:01 83 21 108/71 96 07/15/21 15:31 75 19 130/84 97 07/15/21 15:01 75 17 113/59 96 07/15/21 14:31 75 18 127/59 95 07/15/21 14:01 87 17 121/78 94 07/15/21 13:31 102 H 24 117/86 97 07/15/21 13:01 98 H 17 138/95 97 07/15/21 12:39 16 98 07/15/21 12:00 81 11 L 120/80 98 07/15/21 11:30 93 H 13 111/82 98 07/15/21 11:00 92 H 11 L 115/76 98 07/15/21 10:30 113 H 23 115/76 97 07/15/21 10:00 129 H 14 114/78 97 - Physical Examination General: Appears Well HEENT: Positive: Normocephaly Neck: Positive: trachea midline Cardiac: Positive: irregularly irregular Lungs: Positive: clear to auscultation Neuro: Positive: Grossly Intact Abdomen: Positive: Unremarkable Extremities: Present: normal
[2021-07-16] MEDS ORDERED: ASPIRIN 81 MG TAB CHEW PO SCH (10:00)
[2021-07-16] MEDS: APIXABAN 5 MG TAB PO SCH (10:32)
[2021-07-16] MEDS: hydroCHLOROthiazide 12.5 MG CAP PO SCH (10:33)
[2021-07-16] MEDS: PANTOPRAZOLE 40 MG TAB PO SCH (10:33)
[2021-07-16 20:55] VITALS: BP 123/84
--- NOTE | 2021-07-17 13:06 | Discharge Summary ---
Providers - Providers Date of Admission: 07/15/21 04:51 Date of discharge: 07/17/21 Attending physician: SUZANNE SMITH 07/15/21 Consult to Cardiac Rehabilitation [CONS] Routine Reason For Exam: Phase I 07/15/21 03:26 Consult to Physician [CONS] Routine Comment: Dr. Tran spoke with Dr. Reza @ 0256 Consulting Provider: SHANELL REZA Physician Instructions: Reason For Exam: Afib with RVR 07/15/21 04:51 Consult to Cardiology [CONS] Routine Consulting Provider: SHANELL REZA Reason For Exam: a.fib Hospitalization Condition: Serious Disposition: 07 LEFT AGAINST MEDICAL ADVICE Exam - Constitutional Vitals: Temp Pulse Resp BP Pulse Ox 98.1 F 87 20 123/84 87 07/15/21 00:27 07/16/21 20:01 07/16/21 20:01 07/16/21 20:01 07/16/21 09:01 Plan Follow up with: [facility] [Other] - 7 Days Forms: AMA Form
--- NOTE | 2021-07-18 09:16 | Electrocardiograph Report ---
[facility] Test Date: 2021-07-15 Test Time: 00:22:39 Pat Name: DONNA TEJEDA Department: Room: [place] [address] Gender: M Car [employer]: MIKE : 1975 Requested By: CUCA CORBETT Order Number: [id number] Reading MD: Dmitriy Leo Measurements Intervals [place] Rate: 145 P: MA: QRS: 20 QRSD: 81 T: 16 QT: 311 QTc: 484 Interpretive Statements Atrial fibrillation No previous ECG available for comparison Electronically Signed On 07-18-2021 9:16:13 EST by Dmitriy Leo
== END 2021-07-16 21:07 | disposition left against medical advice (07) | DRG 309 ==
LOC: ED 00:05 → CC1 04:51 → 4A 07-16 06:43 → CC1 07-16 19:06
PROVIDERS: ADMIT Hospitalist; ATTEND Internal Medicine
DX: I48.0 Paroxysmal atrial fibrillation (principal); K50.90 Crohn's disease, unspecified, without complications; E86.0 Dehydration; I10 Essential (primary) hypertension; Z90.49 Acquired absence of other specified parts of digestive tract; R73.9 Hyperglycemia, unspecified; Z53.29 Procedure and treatment not carried out because of patient's decision for other reasons
CPT/HCPCS: 36415; 71046; 80048; 80076; 83735; 83880; 84443; 84484; 85025; 85610; 85730; 93005; 93306; G0378; J3490; Q0162; J7030